=== PATIENT | female | born 1955 | race Caucasian/White ===

== ENCOUNTER 2016-10-24 08:01 | Emergency (ER) | payer BC ==
[2016-10-24 07:49] LABS: BASOPHILS 0.2 %; BASOPHILS ABSOLUTE 0.02 10/3/uL (0.0-0.16); EOSINOPHILS 0.8 %; EOSINOPHILS ABSOLUTE 0.07 10/3/uL (0.0-0.53); ER CBC TAT 0 Hrs 03 Mins; HEMATOCRIT 40.1 % (36.0-48.0); HEMOGLOBIN 13.4 g/dL (12.0-16.0); IMMATURE GRANULOCYTES 0.3 %; IMMATURE GRANULOCYTES ABSOLUTE 0.03 10/3/uL (0.0-0.11); LYMPHOCYTES 19.9 %; MEAN CORPUS HGB CONC 33.4 g/dL (32.0-36.0); MEAN CORPUSCULAR HEMOGLOB 30.5 pg (26.0-34.0); MEAN CORPUSCULAR VOLUME 91.3 fL (80-100); MEAN PLATELET VOLUME 12.1 fL (9.2-13.0); MONOCYTES 9.7 %; MONOCYTES ABSOLUTE 0.88 10/3/uL (0.21-1.20); NEUTROPHILS 69.1 %; NEUTROPHILS ABSOLUTE 6.26 10/3/uL (2.02-8.40); PLATELET COUNT 220 10/3/uL (150-400); RBC DISTRIBUTION WIDTH 13.2 % (12.0-16.0); RED CELL COUNT 4.39 10/6/uL (4.0-5.6); WHITE BLOOD CELLS 9.1 10/3/uL (4.5-10.5)
[2016-10-24 07:50] LABS: MANUAL DIFF NO %
[~2016-10-24 08:01] MED LIST: 8 HOUR650 MG PO; AMB10 PO; AMITIZA8 MCG PO; ASAB PO; B121000P IM; B121000P IM/SC; BACDS PO; BETAP120 PO; BETAPACE160 MG PO; BROVANA15 MCG INH; C25 PO; C5 PO; CALTRA600D PO; CALTRAT600 PO; CARD120 PO; CARDCD120 PO; CARDCD180 PO; CAT1 PO; CENTRUM TAB1 TAB PO; COCONUT OIL; COMBIVENT RESPIM4 GM INH; CORDARONE PO; COUMADIN3 MG PO; DEMA10T PO; DILTIAZEM PO; ELIQUIS 5 MG TAB5 MG PO; FERROUS SULF325 M1 PO; FISH OIL OTC PO; FISH OIL1200 MG PO; FISH-EPA1000 MG PO; FLECAINIDE100 MG PO; FLECAINIDE150 MG PO; FLEX PO; FLOMAX4 PO; FLORASTOR250 MG PO; FLUCON150 PO; K500 PO; L20 PO; LINZESS 290 M290 MCG PO; LOP25 PO; LOVENOX40 SC; MACRO50B PO; MACROBID PO; MAGOX4 PO; MIRALAXPKT PO; MONISTAT V; MUCINEX600 MG PO; MULTIPLE VIT PO; NORCO1 TAB PO; NORV25 PO; NYS500UDL PO; OCEAN NAS; OS500+D PO; OTC VITAMIN D PO; P10 PO; PR25 PO; PREPARATION H1 SUPP PR; PRILO PO; PRILOSEC40 MG PO; PRIN10 PO; REFRESH OPH; REFRESH TEAR0.5 % OPH; SUCR PO; TAMBOCOR PO; VALTREX5 PO; VIB100 PO; VITAMIN D OTC PO; VITAMIN D31000 UNIT PO; X5 PO; XANAX1 MG PO; ZESTRIL10 MG PO; ZOCOR10 PO; ZOCOR40 PO
[2016-10-24 08:02] LABS: INTERNATIONAL NORMAL RATI 2.5 UNITS (-)
[2016-10-24 08:03] LABS: PROTIME (NOT ORD) 26.8 SEC (12.0-14.5)
[2016-10-24 08:05] LABS: A/G RATIO 1.1 (0.7-1.9); ALBUMIN 3.4 G/DL (3.5-5.0); ALKALINE PHOSPHATASE 97 U/L (45-117); BUN (BLOOD UREA NITROGEN) 12 MG/DL (6-23); CALCIUM, SERUM 8.8 MG/DL (8.5-10.4); CHLORIDE, SERUM 106 MMOL/L (96-112); CO2 (CARBON DIOXIDE) 27 MMOL/L (24-34); GFR AFRICAN AMERICAN 108 ML/MIN (>=60); GFR NON AFRICAN AMERICAN 93 ML/MIN (>=60); GLOBULIN 3.2 G/DL (2.5-4.1); GLUCOSE, SERUM 90 MG/DL (60-99); POTASSIUM, SERUM 3.9 MMOL/L (3.5-5.3); SGOT(AST) 27 U/L (5-40); SGPT(ALT) 31 U/L (5-65); SODIUM, SERUM 143 MMOL/L (135-148); TOTAL BILIRUBIN 0.6 MG/DL (0-1.2); TOTAL PROTEIN 6.6 G/DL (6.0-8.5)
[2016-10-24 08:17] LABS: ASCORBIC ACID (UR NOT ORDER) NEG (NEG); BILIRUBIN, URINE NEGATIVE (NEG); KETONE, URINE NEGATIVE (NEG); LEUKOCYTE ESTERASE(NOT OR LARGE (NEG); NITRITE (URINE) NEG (NEG)
[2016-10-24 08:18] LABS: WBC (NOT ORDERED) (RFLEX) > 182 (0-5)
[2016-10-24 08:54] LABS: ER URINALYSIS TAT 0 Hrs 31 Mins
== END 2016-10-24 09:08 | disposition home or self-care (01) ==
LOC: ER 08:01
PROVIDERS: Physician Assistant
DX: K52.9 Noninfective gastroenteritis and colitis, unspecified (principal); N39.0 Urinary tract infection, site not specified; I12.9 Hypertensive chronic kidney disease with stage 1 through stage 4 chronic kidney disease, or unspecified chronic kidney disease; N18.9 Chronic kidney disease, unspecified; F41.9 Anxiety disorder, unspecified; I48.91 Unspecified atrial fibrillation; Z91.040 Latex allergy status; Z88.5 Allergy status to narcotic agent; Z88.1 Allergy status to other antibiotic agents; Z88.8 Allergy status to other drugs, medicaments and biological substances; Z79.899 Other long term (current) drug therapy; Z79.82 Long term (current) use of aspirin
CPT/HCPCS: 80053; 81001; 85025; 85610; 87086; 99284